=== PATIENT | female | born 1985 | race Caucasian/White ===

== ENCOUNTER 2018-03-10 09:47 | Inpatient (IN) | payer BC ==
[2018-03-10] MEDS ORDERED: Sodium Citrate/Citric Acid* 15 ML UDC PO ONE (11:09)
[2018-03-10] MEDS ORDERED: Buffered Lidocaine 1% SYRIN* 1 ML/SYRINGE INTRADERM ONE (11:09)
[2018-03-10] MEDS ORDERED: Lactated Ringers 1000 ML Bag* 1,000 ML IV ONE (11:09)
[2018-03-10] MEDS ORDERED: ceFOXitin 2 GM IVPREMIX* 2 GM/50 ML BAG IVPB ONE (11:09)
--- NOTE | 2018-03-10 11:22 | HP ---
General Information - Reason for Visit Patient is with a Breech presentation and confirmed spontaneous ruptured membranes. - General Information Maternal Age: 32 Grav: 1 Para: 0 SAB: 0 IEA: 0 Estimated Due Date: 03/28/18 Determined By: LMP Gestational Age in Weeks/Days: 37 3/7 weeks Maternal Blood Type and Rh: AB Positive - Results this Serology/RPR Result: Non-Reactive Rubella Result: Immune HBsAg Result: Negative HIV Result: Negative GBS Culture Result: Negative Past Medical History Delivery History: See Records Pertinent Past Medical History: See Records Past Medical History Comment: Asthma Migraine Headaches Seasonal allergies Pertinent Past Surgical History: See Records Past Surgical History Comment: [place] tooth extraction Pertinent Family History: See Records - Antepartal Records Antepartal Records: Reviewed, Complicated by: - Breech presentation and PROM Review of Systems Constitutional: Comfortable CV Complaint: No Respiratory: Shortness of Breath: No Gastrointestinal: No Nausea/Vomiting, Normal Bowel Movement Genitourinary: Leaking Fluid, No Bleeding Musculoskeletal: No Complaint, No Epigastric Pain, Contractions - mild to moderate Neurological: No Headache, No Visual Changes Movement: Normal Exam Allergies/Adverse Reactions: Allergies No Known Allergies Allergy (Verified 03/10/18 11:07) Temp 97.4 BP 126/81 P 73 RR 18 Pox 99% RA Lab Values - Entire Visit: Laboratory Tests 03/10/18 10:10 Vag Amniotic Fld Detect Positive - Measurements Height: 5 ft 9 in Weight: 178 lb Weight in lbs: 178.056216 Body Mass Index (BMI): 26.2 Pre- Weight: 135 lb Weight Gained This : 43 lbs and 0 ozs - Exam Breast: Breast Exam Deferred CVA: No CVA Tenderness Extremities: No Edema Heart: Normal Rhythm/Heart Sounds HEENT: No Significant Findings Lungs: Clear Bilaterally Rectal: Rectal Exam Deferred Reflexes: DTR 2+ Thyroid: No Thyromegaly - Abdominal Exam Abdomen Exam: Non-Tender - Breech confirmed by ultrasound, Fundal Height Consistent with Dates Targeted Exam Findings See L&D Outpatient Visit Provider Note for Findings: N/A Cervical Exam: 1cm Effacement: <50% Station: 0 Presenting Part: Breech Membrane Status: SROM Amniotic Fluid Evaluation: Positive ROM Plus EFM Findings - External Monitor Findings Baseline Heart Rate: 140 External Monitor Findings: Accelerations Present Contractions: Irregular, Moderate, < 45 Seconds Assessment/Plan - Assessment 37 3/7 weeks with SROM and breech presentation. - Obstetrical Risk Factors Obstetrical Risk Factors: Breech - Plan Plan: IV Hydration, Antibiotic Prophylaxis, C/S Delivery
[2018-03-10] MEDS ORDERED: OXYTOCIN* 10 UNITS/ML 1 ML VIAL ONE (11:46)
[2018-03-10] MEDS ORDERED: Ketorolac INJ* 30 MG/ML 1 ML VIAL ONE (11:46)
[2018-03-10] MEDS ORDERED: Ondansetron INJ* 2 MG/ML VIAL ONE (11:46)
[2018-03-10] MEDS ORDERED: Bupivacaine-MPF SPINAL* 7.5 MG/ML - 2ML AMP ONE (11:47)
[2018-03-10] MEDS ORDERED: Morphine PF AMP (0.5MG/ML)* 5 MG/10 ML AMP ONE (11:47)
[2018-03-10 11:49] LABS: ABS Basophils 0 10^3/ul (0-0.2); ABS Eosinophils 0.1 10^3/ul (0-0.6); ABS Lymphocytes 1.8 10^3/ul (1.0-4.8); ABS Monocytes 0.6 10^3/ul (0-0.8); ABS Neutrophils 7.9 10^3/ul (1.5-7.7); ABS Nucleated RBC 0 10^3/ul; Eosinophil % 0.5 %; Hematocrit 38 % (35-47); Hemoglobin 12.9 g/dl (12.0-16.0); Lymphocyte % 17.5 %; Mean Corpuscular HGB Conc 34 g/dl (31-36); Mean Corpuscular Hemoglobin 31 pg (27-31); Mean Corpuscular Volume 89 fL (80-97); Mean Platelet Volume 11.2 fL (7.4-10.4); Nucleated Red Blood Cells % 0; Platelet Count 145 10^3/ul (150-450); Red Blood Count 4.23 10^6/ul (4.00-5.40); Red Cell Distribution Width 13 % (10.5-15); White Blood Count 10.4 10^3/ul (3.5-10.8)
[2018-03-10] MEDS ORDERED: Naloxone* 0.4 MG/ML 1 ML VIAL IV PRN ×2 (11:49→11:51)
[2018-03-10] MEDS ORDERED: oxyCODONE TAB* 5 MG TAB PO PRN (11:49)
[2018-03-10] MEDS ORDERED: Acetaminophen IV 1GM/100ML * 1,000 MG/100 ML VIAL IVPB ONE (11:49)
[2018-03-10] MEDS ORDERED: HYDROmorphone INJ1* 1 MG/ML SYRINGE IV PRN (11:49)
[2018-03-10] MEDS ORDERED: DiMENhydriNATE IV* 50 MG/ML VIAL IV PUSH PRN ×2 (11:49→11:51)
[2018-03-10] MEDS ORDERED: oxyCODONE/Acetamin 5/325 MG* TAB PO PRN (11:51)
[2018-03-10] MEDS ORDERED: Nalbuphine* 10 MG/ML 1 ML VIAL IV PRN (11:51)
[2018-03-10] MEDS ORDERED: Ondansetron INJ* 2 MG/ML VIAL IV PRN (11:51)
[2018-03-10] MEDS ORDERED: Lactated Ringers 1000 ML Bag* 1,000 ML IV SCH ×2 (12:00→14:00)
[2018-03-10] MEDS ORDERED: Lidocaine 2% PF * 5 ML VIAL ONE (12:01)
[2018-03-10] MEDS ORDERED: Phenylephrine IV* 40 MCG/ML 10 ML SYRINGE ONE (12:03)
[2018-03-10] MEDS ORDERED: Propofol* 10 MG/ML 20 ML BTL ONE (12:47)
[2018-03-10] MEDS ORDERED: Zolpidem TAB* 5 MG PO PRN (13:25)
[2018-03-10] MEDS ORDERED: Witch Hazel PAD* JAR TOPICAL PRN (13:25)
[2018-03-10] MEDS ORDERED: Glycerin ADULT SUPP PR PRN (13:25)
[2018-03-10] MEDS ORDERED: Dibucaine 1% 28.35 GM TUBE PR PRN (13:25)
[2018-03-10] MEDS: Simethicone TAB* 80 MG TAB.CHEW PO SCH ×2 (17:12→20:09)
[2018-03-10] MEDS: Docusate CAP* 100 MG PO SCH ×2 (17:12→20:09)
[2018-03-10] MEDS: Acetaminophen TAB* 325 MG PO PRN ×2 (17:41→21:48)
[2018-03-10] MEDS: Ibuprofen TAB* 600 MG PO SCH (18:44)
--- NOTE | 2018-03-10 21:41 | OP ---
OPERATIVE REPORT: DATE OF OPERATION: 03/10/18 DATE OF : 81 SURGEON: Vlad Nazario MD LIVING SUPERVISOR: Dr. Freeman. ANESTHESIA: Spinal. PRE-OP DIAGNOSES: Intrauterine at 37 and 3/7 weeks, breech presentation, spontaneous ruptu re of membranes. POST-OP DIAGNOSES: Intrauterine at 37 and 3/7 weeks, breech presentation, spontaneous rupt ure of membranes. OPERATIVE PROCEDURE: Primary low transverse section. ESTIMATED BLOOD LOSS: 500 cc. SPECIMENS SENT TO PATHOLOGY: Cord blood. FLUIDS: She received 2 L of IV crystalloid fluid. URINE OUTPUT: Clear. FINDINGS: Delivery of a female infant in racheal breech presentation of a clear fluid, weighing 7 poun ds 8 ounces with Apgars of 8 and 9. The placenta was grossly intact with a 3-vessel cord noted. The uterus, adnexa, bowel, and bladder were all within normal limits. There were no complications. DESCRIPTION OF PROCEDURE: The patient was taken to the operating room where she was identified. She was placed on the operating room table where a spinal anesthetic was obtained without difficulty. S he was then placed in the supine position with a leftward tilt, prepped and draped in a normal steril e fashion. A Pfannenstiel skin incision was then made with a knife and carried through to the underl andreina layer of fascia. The fascia was then nicked in the midline and extended laterally with curved M ashley scissors. The fascia was grasped superiorly and inferiorly with Suraj clamps and dissected off sharply from the rectus muscle. The rectus muscle was in the midline bluntly. The peritone um was identified, grasped with pickups, and entered sharply with Metzenbaum scissors and extended davila periorly and inferiorly bluntly. A bladder blade was inserted into the patient's abdomen. A low tra nsverse incision was made with a knife about 3 cm above the bladder reflection, extended laterally wi th bandage scissors. The 's breech was grasped and the baby was delivered through a breech ext raction. The cord was clamped and cut and the infant was handed off to the awaiting technician assistant. Th e placenta was removed manually. The uterus was then exteriorized, cleared off all clot and debris u sing moist laparotomy sponges. The uterine incision was then closed using 0 Polysorb suture in a run lee locked fashion with the second imbricating layer of 0 Polysorb suture with good hemostasis noted . The uterus was returned to the patient's abdomen. The gutters were then cleared of all clot and d ebris using moist laparotomy sponges and irrigation fluid which was suctioned. All the sponges were removed from the patient's abdomen as well and instruments. The peritoneum was then closed using 3-0 Polysorb suture in a running fashion. The fascia was closed using 0 Polysorb suture in a running fa shion and the skin was closed with 4-0 Monocryl subcuticular stitch. The patient tolerated the proce dure well. Sponge, lap, and needle counts were correct x2. She was then transferred to the recovery room area in stable condition. [id number]/[facility] #: [id number]
[2018-03-11] MEDS: Ibuprofen TAB* 600 MG PO SCH (01:12)
[2018-03-11] MEDS ORDERED: oxyCODONE/Acetamin 5/325 MG* TAB PO PRN ×2 (03:51)
[2018-03-11] MEDS: Acetaminophen TAB* 325 MG PO PRN ×4 (06:03→21:23)
[2018-03-11 07:16] LABS: ABS Basophils 0 10^3/ul (0-0.2); ABS Eosinophils 0.1 10^3/ul (0-0.6); ABS Lymphocytes 1.2 10^3/ul (1.0-4.8); ABS Monocytes 0.7 10^3/ul (0-0.8); ABS Neutrophils 10.3 10^3/ul (1.5-7.7); ABS Nucleated RBC 0 10^3/ul; Eosinophil % 1.1 %; Hematocrit 33 % (35-47); Hemoglobin 11.5 g/dl (12.0-16.0); Lymphocyte % 9.7 %; Mean Corpuscular HGB Conc 35 g/dl (31-36); Mean Corpuscular Hemoglobin 31 pg (27-31); Mean Corpuscular Volume 89 fL (80-97); Mean Platelet Volume 11.2 fL (7.4-10.4); Nucleated Red Blood Cells % 0; Platelet Count 124 10^3/ul (150-450); Red Blood Count 3.74 10^6/ul (4.00-5.40); Red Cell Distribution Width 13 % (10.5-15); White Blood Count 12.4 10^3/ul (3.5-10.8)
[2018-03-11] MEDS: Simethicone TAB* 80 MG TAB.CHEW PO SCH ×4 (07:22→19:54)
[2018-03-11] MEDS: Docusate CAP* 100 MG PO SCH ×3 (07:22→19:54)
[2018-03-11] MEDS: Ibuprofen TAB* 600 MG PO PRN ×3 (07:22→19:54)
[2018-03-11] MEDS ORDERED: Ferrous Gluconate TAB* 324 MG TAB PO SCH (09:00)
[2018-03-12] MEDS: Acetaminophen TAB* 325 MG PO PRN ×4 (01:09→22:01)
[2018-03-12] MEDS: Ibuprofen TAB* 600 MG PO PRN ×4 (02:23→19:58)
[2018-03-12] MEDS: Simethicone TAB* 80 MG TAB.CHEW PO SCH ×4 (08:23→19:58)
[2018-03-12] MEDS: Docusate CAP* 100 MG PO SCH ×3 (08:23→19:58)
--- NOTE | 2018-03-12 12:38 | PTEDU ---
Patient Name: HARIS GARCIA HARIS GARCIA selected video: BBOB: Nurturing Your Gorgeous &Growing Baby by to view on 03/12/2018 at 12:38:01 PM [id number]
[2018-03-13] MEDS: Ibuprofen TAB* 600 MG PO PRN ×3 (02:08→14:11)
[2018-03-13] MEDS: Acetaminophen TAB* 325 MG PO PRN ×2 (05:16→10:59)
[2018-03-13] MEDS: Docusate CAP* 100 MG PO SCH ×2 (08:25→14:11)
[2018-03-13] MEDS: Simethicone TAB* 80 MG TAB.CHEW PO SCH ×2 (08:25→14:11)
[2018-03-13 10:07] VITALS: BP 118/70
--- NOTE | 2018-03-13 12:27 | PTEDU ---
Patient Name: HARIS GARCIA HARIS GARCIA selected video: BBOB: Bonding Through Infant Massage to view on 03/13/2018 at 12:27:0 1 PM from [id number]
== END 2018-03-13 16:29 | disposition home or self-care (01) | DRG 540 ==
LOC: MCHOBOUT 09:47 → MCHOB 10:45
PROVIDERS: ADMIT Obstetrics & Gynecology; ATTEND Obstetrics & Gynecology
PROC: 4A1HXCZ Monitoring of Products of Conception, Cardiac Rate, External Approach (ICD-10-PCS; 2018-03-10)
PROC: 10D00Z1 Extraction of Products of Conception, Low, Open Approach (ICD-10-PCS; principal; 2018-03-10 12:09)
DX: O32.1XX0 Maternal care for breech presentation, not applicable or unspecified (principal); Z3A.37 37 weeks gestation of pregnancy; Z37.0 Single live birth
CPT/HCPCS: 36415; 84112; 85025; 86850; 86900; 86901; A9270-GY; J0694; J1885; J2405; J2590; J2704

== ENCOUNTER 2023-09-26 19:06 | Inpatient (IN) ==
[2023-09-26] MEDS ORDERED: Prochlorperazine 5 mg/ml 2 ml VIAL (10 mg) IV PRN (20:06)
[2023-09-26] MEDS ORDERED: Nalbuphine 10 MG/ML 1 ML VIAL IV PRN (20:06)
[2023-09-26 20:29] LABS: Urine Benzodiazepine Screen None Detected (None Detect); Urine Cannabinoids Screen None Detected (None Detect); Urine Opiates Screen None Detected (None Detect)
[2023-09-26 20:43] LABS: ABS Lymphocytes 1.9 10^3/uL (1.0-4.8); ABS Monocytes 0.5 10^3/uL (0.0-0.9); ABS Neutrophils 10.7 10^3/uL (1.5-7.6); ABS Nucleated RBC 0.01 10^3/ul; Eosinophil % 0.3 %; Hematocrit 38.6 % (35-45); Hemoglobin 13.2 g/dL (11.5-14.3); Lymphocyte % 14.4 %; Mean Corpuscular Hemoglobin 30.1 pg (27-33); Mean Corpuscular Hgb Conc 34.1 g/dL (31-36); Mean Corpuscular Volume 88.3 fL (80-97); Mean Platelet Volume 11.3 fL (7.5-11.2); Platelet Count 180 10^3/uL (150-450); Red Blood Count 4.38 10^6/uL (3.63-4.92); White Blood Count 13.2 10^3/uL (3.8-11.8)
[2023-09-26 21:07] LABS: Albumin 3.6 g/dL (3.2-5.2); Albumin/Globulin Ratio 1.2 (1-3); Calcium 9.4 mg/dL (8.6-10.3); Creatinine, Serum 0.61 mg/dL (0.51-0.95); Globulin 3.1 g/dL (2-4); Potassium 3.9 mmol/L (3.5-5.0); Total Bilirubin 0.4 mg/dL (0.2-1.0); Total Protein 6.7 g/dL (6.4-8.9); eGFR CKD-EPI 115.8 (>60)
[2023-09-27] MEDS: Lactated Ringers 1000 ml BAG 1,000 ML IV ONE (02:00)
[2023-09-27] MEDS: Oxytocin in LR 20,000 MILLI.UNIT/1,000 ML BAG IV SCH (05:39)
[2023-09-27] MEDS ORDERED: Glycerin ADULT 2.4 gm SUPP PR PRN (06:08)
[2023-09-27] MEDS: Dibucaine 1% OINT 28.35 GM TUBE PR PRN (06:35)
[2023-09-27] MEDS: Witch Hazel PAD JAR TOPICAL PRN (06:35)
[2023-09-27] MEDS: Lidocaine 1% VIAL 10 MG/ML 30 ML VIAL INJ PRN (06:44)
[2023-09-27] MEDS ORDERED: Lactated Ringers 1000 ml BAG 1,000 ML IV SCH (07:00)
[2023-09-28 06:54] LABS: ABS Basophils 0.1 10^3/uL (0.0-0.1); ABS Eosinophils 0.2 10^3/uL (0.0-0.5); ABS Lymphocytes 2.3 10^3/uL (1.0-4.8); ABS Monocytes 0.7 10^3/uL (0.0-0.9); Hematocrit 29.3 % (35-45); Hemoglobin 10.1 g/dL (11.5-14.3); Lymphocyte % 15.1 %; Mean Corpuscular Hemoglobin 30.5 pg (27-33); Mean Corpuscular Hgb Conc 34.4 g/dL (31-36); Mean Corpuscular Volume 88.8 fL (80-97); Mean Platelet Volume 11.2 fL (7.5-11.2); Platelet Count 133 10^3/uL (150-450); Red Cell Distribution Width 12.9 % (12-17); White Blood Count 15.3 10^3/uL (3.8-11.8)
[2023-09-28] MEDS: Lidocaine 1% VIAL 10 MG/ML 30 ML VIAL ONE (20:12)
[2023-09-28] MEDS: Oxytocin in LR 20,000 MILLI.UNIT/1,000 ML BAG IV SCH (20:12)
[2023-09-28] MEDS: Lactated Ringers 1000 ml BAG 1,000 ML IV SCH (20:13)
[2023-09-28] MEDS: Buffered Lidocaine 1% SYRIN 1 ml INTRADERM ONE (20:13)
[2023-09-29 08:05] VITALS: BP 150/78
== END 2023-09-29 13:10 | disposition home or self-care (01) | DRG 560 ==
LOC: MCHOBOUT 19:06 → MCHOB 20:05
PROVIDERS: ADMIT Obstetrics & Gynecology; ATTEND Obstetrics & Gynecology